=== PATIENT | female | born 1955 | race Caucasian/White ===

== ENCOUNTER 2018-10-31 10:12 | Day surgery (SDC) | payer OTHER ==
[2018-10-31] MEDS: LIDOCAINE 1% (MPF) 5 ML VIAL INJ
[2018-10-31] MEDS: TOBRAMYCIN/DEXAMETH 3.5 GM OPH OINT RIGHT EYE
[2018-10-31] MEDS: TETRACAINE 0.5% 4 ML OPH RIGHT EYE
[2018-10-31] MEDS: PHENYLephrine 2.5% 15 ML OPH OPER (11:01)
[2018-10-31] MEDS: CYCLOPENTOLATE 1% 2 ML OPH OPER (11:02)
[2018-10-31] MEDS: MOXIFLOXACIN 0.5% 3 ML OPH OPER (11:02)
[2018-10-31] MEDS: TROPICAMIDE 1% 15 ML OPH OPER (11:02)
[2018-10-31] MEDS: LACTATED RINGER'S 1,000 ML IV (11:30)
[2018-10-31] MEDS ORDERED: EPINEPHrine 1 MG INJ (11:50)
[2018-10-31] MEDS ORDERED: TIMOLOL MALEATE/PF 0.5% OCCUDOSE (0.3 ML) (11:50)
[2018-10-31] MEDS ORDERED: LIDOCAINE 1% (MPF) 5 ML VIAL (11:50)
[2018-10-31] MEDS ORDERED: TOBRAMYCIN/DEXAMETH 3.5 GM OPH OINT ×2 (11:50)
[2018-10-31] MEDS ORDERED: MEPERIDINE 25 MG INJ IV (12:00)
[2018-10-31] MEDS ORDERED: FENTAnyl 50 MCG/ML VIAL IV ×3 (12:00→12:30)
[2018-10-31] MEDS ORDERED: ONDANSETRON 4 MG INJ IV (12:00)
[2018-10-31] MEDS ORDERED: LABETALOL HCL 20MG INJ IV ×2 (12:00→12:30)
[2018-10-31] MEDS ORDERED: EPHEDrine 25 MG/5 ML SYG IV ×2 (12:00→12:30)
[2018-10-31] MEDS ORDERED: MIDAZOLAM 1 MG/ML 2 ML INJ (12:09)
[2018-10-31] MEDS ORDERED: FENTAnyl 50 MCG/ML VIAL (12:09)
[2018-10-31] MEDS ORDERED: METOCLOPRAMIDE 10 MG INJ (12:27)
[2018-10-31] MEDS ORDERED: LABETALOL HCL 20MG INJ (12:27)
[2018-10-31] MEDS ORDERED: ONDANSETRON 4 MG INJ (12:27)
[2018-10-31] MEDS ORDERED: hydrALAzine 20 MG INJ IV (12:30)
== END 2018-10-31 14:47 | disposition home or self-care (01) ==
LOC: SDS 10:12
DX: H25.11 Age-related nuclear cataract, right eye (principal); I10 Essential (primary) hypertension
CPT/HCPCS: 66984